=== PATIENT | female | born 1990 | race Caucasian/White ===

== ENCOUNTER 2019-09-23 21:37 | Emergency (ER) | payer BC ==
--- NOTE | 2019-09-23 21:48 | PDOC ---
Rapid Medical Evaluation Time Seen by Provider: 09/23/19 21:47 Medical Evaluation: 09/23/19 21:47 CC: heavy vaginal bleeding PE: blood soaked pants. electrolysis investigator deferred Orders: labs, urine Patient will proceed to ER for further evaluation. Discharge Disposition - Diagnosis Vaginal bleeding - Referrals - Patient Instructions - Post Discharge Activity
[2019-09-23 21:56] VITALS: BMI 24.4
--- NOTE | 2019-09-23 22:05 | PDOC ---
History of Present Illness - General Chief Complaint: Vaginal Bleeding Stated Complaint: MISCARRIGE Time Seen by Provider: 09/23/19 21:47 History Source: Patient Exam Limitations: No Limitations - History of Present Illness Initial Comments: 09/23/19 22:39 29yF previously healthy 11wk presenting w vaginal bleeding and suprapubic cramping. Started vaginal bleeding 2d ago, acutely worsening at 7pm today, passed tissue of conception. Took 3 motrin without relief. Was told 3wks ago by OBGYN (doesn't remember name) that no hr detected, likely will have miscarriage, prescribed cytotec but pt did not take d/t problems w pharmacy and travelling. Denies fever, chest pain, SOB, nausea/vomiting. 1st complicated w placenta previa, delivered at 36wks. Past History - Past Medical History Allergies/Adverse Reactions: Allergies Allergy/AdvReac Type Severity Reaction Status Date / Time No Known Allergies Allergy Verified 09/23/19 22:29 Home Medications: Ambulatory Orders NK [No Known Home Medication] 09/23/19 CVA: No COPD: No - Psycho Social/Smoking Cessation Hx Smoking History: Never smoked Have you smoked in the past 12 months: No Information on smoking cessation initiated: No Hx Alcohol Use: No Drug/Substance Use Hx: No Review of Systems - Review of Systems Constitutional: No: Chills, Fever HEENTM: No: Eye Pain, Nose Pain, Throat Pain, Mouth Pain Respiratory: No: Cough, Shortness of Breath Cardiac (ROS): No: Chest Pain, Palpitations, Syncope ABD/GI: No: Abdominal Distended, Constipated, Diarrhea, Nausea, Vomiting : No: Burning, Dysuria, Hematuria Musculoskeletal: No: Back Pain, Joint Pain Integumentary: No: Bruising, Flushing, Lesions Neurological: No: Headache, Numbness, Seizure, Tingling Psychiatric: No: Anxiety, Depression, Stressors Endocrine: No: Excessive Sweating, Flushing, Intolerance to Cold, Intolerance to Heat Hematologic/Lymphatic: Yes: Blood Clots. No: Anemia *Physical Exam - Vital Signs Last Vital Signs Temp Pulse Resp BP Pulse Ox 98.4 F 82 18 128/64 98 09/23/19 21:40 09/23/19 21:40 09/23/19 21:40 09/23/19 21:40 09/23/19 21:40 - Physical Exam General Appearance: Yes: Nourished, Appropriately Dressed, Mild Distress HEENT: positive: EOMI, ROBEROT, Normal Voice, Hearing Grossly Normal. negative: Scleral Icterus (R), Scleral Icterus (L), Nasal Congestion, Rhinorrhea Respiratory/Chest: positive: Lungs Clear, Normal Breath Sounds. negative: Chest Tender, Respiratory Distress, Crackles, Rales, Rhonchi, Stridor, Wheezing Cardiovascular: positive: Regular Rhythm, Regular Rate, S1, S2. negative: Edema , Murmur Female Pelvic Exam: positive: normal external exam, normal adnexa, normal size ovaries, vaginal bleeding (gross). negative: cervical os closed (open 4cm), CMT , discharge Gastrointestinal/Abdominal: positive: Normal Bowel Sounds, Tender (mild suprapubic), Flat, Soft. negative: Organomegaly Musculoskeletal: negative: CVA Tenderness (R), CVA Tenderness (L) Extremity: positive: Normal Capillary Refill Integumentary: positive: Normal Color Neurologic: positive: Fully Oriented, Alert, Normal Response, Responsive. negative: Sensory Deficit, Confused, Disoriented ED Treatment Course - LABORATORY CBC & Chemistry Diagram: 09/23/19 22:25 09/23/19 22:25 Medical Decision Making - Medical Decision Making 09/23/19 22:44 pelvic exam showed gross blood w clots, open cervical os 4cm, no cervical/ ovarian tenderness TVUS WBC 11, normal CMP, O+ B-HCG 4435 --- 29yF previously healthy 11wk presenting w vaginal bleeding and suprapubic cramping Likely inevitable (open os, bleeding, released tissue of conception) vs viable intrauterine vs ectopic. Hemodynamically stable, not anemic , HCG 4435. Given 1L NS, tylenol Consult Dr Kathleen MENDOZA after US read Anticipate DC w cytotec, f/u for HCG recheck in 2d Signed out to night team Discharge - Discharge Information Problems reviewed: Yes Clinical Impression/Diagnosis: Vaginal bleeding Condition: Stable - Follow up/Referral - Patient Discharge Instructions - Post Discharge Activity
[2019-09-23] MEDS ORDERED: SODIUM CHLORIDE 0.9% 1000 ML INFUS.BAG IV ONE (22:09)
[2019-09-23 22:39] LABS: BASO % 0.8 % (0-2.0); EOS % 1.4 % (0-4.5); HEMATOCRIT 32.6 % (32.4-45.2); HEMOGLOBIN 10.9 GM/dL (10.7-15.3); LYMPH % 21.5 % (8-40); MCH 26.6 pg (25.7-33.7); MCHC 33.4 g/dl (32.0-36.0); MEAN CELL VOLUME 79.7 fl (80-96); MEAN PLT VOLUME 8.8 fl (7.5-11.1); MONO % 5.1 % (3.8-10.2); NEUT % 71.2 % (42.8-82.8); PLATELET COUNT 223 K/MM3 (134-434); RBC 4.09 M/mm3 (3.60-5.2); RDW 14.9 % (11.6-15.6); WHITE BLOOD COUNT 11.3 K/mm3 (4.0-10.0)
[2019-09-23] MEDS ORDERED: ACETAMINOPHEN 1000 MG/100 ML VIAL (NON FORMULARY) IVPB ONE (22:39)
--- NOTE | 2019-09-23 22:48 | PDOC ---
Documentation entered by Minesh Bceker SCRIBE, acting as scribe for Jolie Zaman MD. Jolie Zaman MD: This documentation has been prepared by the Eugenio poole Nirvannie, SCRIBE, under my direction and personally reviewed by me in its entirety. I confirm that the documentation accurately reflects all work, treatment, procedures, and medical decision making performed by me. Attending Attestation - Resident Resident Name: Percy Anglin - ED Attending Attestation I have performed the following: I have examined & evaluated the patient, The case was reviewed & discussed with the resident, I agree w/resident's findings & plan, Exceptions are as noted - HPI HPI: 09/23/19 22:24 29 year old at 11 weeks female, with no significant past medical history, who presents to the emergency department with vaginal bleeding. As per patient, 3 weeks ago on ultrasound was found to have no heartbeat and was prescribed cytotec, however, she was unable to take the medication secondary to issues with traveling and insurance. started having spotting 2 days ago, bleeding became heavy today. was having severe abd cramping earlier, did pass bright red blood with tissue. no dizziness or lightheadedness. no mod factors. did have one other , complicated by placenta previa She denies recent fevers, chills, headache or dizziness. She denies recent nausea, vomit, diarrhea or constipation. She denies recent dysuria, frequency, urgency or hematuria. She denies recent chest pain or shortness of breath. Allergies: NKDA 09/23/19 22:39 09/23/19 22:41 - Physicial Exam PE: 09/23/19 22:41 awake alet lungs clear bilat heart rrr no mrg abd soft mild suprapubic ttp. no rebound no guarding. ext wwp no cva tenderness. vaginal exam with pooling bright red blood in vault. os open few mm, some clots. no adnexal tenderness. - Medical Decision Making 09/23/19 22:42 29 yo f with piror previa here with bleeding. told demise 3 weeks ago , did not use cytotec as prescribed. started bleeding 3 days ago, became heavy today. on exam vaginal vault wih pooling. no adnexal masses. cervix open. plan cbc cmp iv hydration tvus. bhcg. type and screen. pt states bleeding is slowing down. pending us results, will determine if d&C needed, or conservative management. 09/24/19 00:40 tvus with miscarriage in progress. small pole 5 wks in size much smaller thn expected consistent with demise noted several weeks earlier. will d/w ob/ trichologist for followup. pt is here visiting from [place]. 09/24/19 00:41
[2019-09-23 23:00] LABS: INR 1.07 (0.83-1.09); PROTHROMBIN TIME (PATIENT) 12.6 SEC (9.7-13.0)
[2019-09-23] MEDS ORDERED: ACETAMINOPHEN INJECTION 100 ML IVPB ONE (23:02)
[2019-09-23 23:24] LABS: BILIRUBIN,TOTAL 0.2 mg/dL (0.2-1); BLOOD UREA NITROGEN 13.1 mg/dL (7-18); CALCIUM 8.9 mg/dL (8.5-10.1); CREATININE 0.7 mg/dL (0.55-1.3); POTASSIUM 3.7 mmol/L (3.5-5.1); TOT PROT 7.2 g/dl (6.4-8.2)
--- NOTE | 2019-09-24 01:25 | PDOC ---
*Physical Exam - Vital Signs Last Vital Signs Temp Pulse Resp BP Pulse Ox 98.4 F 82 18 128/64 98 09/23/19 21:40 09/23/19 21:40 09/23/19 21:40 09/23/19 21:40 09/23/19 21:40 - Physical Exam General Appearance: Yes: Nourished, Appropriately Dressed HEENT: positive: EOMI, ROBERTO, Normal ENT Inspection, Pharynx Normal Neck: positive: Trachea midline, Normal Thyroid, Supple Respiratory/Chest: positive: Lungs Clear, Normal Breath Sounds. negative: Crackles, Wheezing Cardiovascular: positive: Regular Rhythm, Regular Rate, S1, S2. negative: Murmur, Gallop/S3, Gallop/S4 Vascular Pulses: Dorsalis-Pedis (R): 2+, Doralis-Pedis (L): 2+ Female Pelvic Exam: positive: vaginal bleeding. negative: cervical os closed Gastrointestinal/Abdominal: positive: Normal Bowel Sounds, Soft. negative: Guarding, Rebound Neurologic: positive: Fully Oriented, Alert, Normal Mood/Affect ED Treatment Course - LABORATORY CBC & Chemistry Diagram: 09/23/19 22:25 09/23/19 22:25 - ADDITIONAL ORDERS Additional order review: Laboratory Results 09/23/19 09/23/19 09/23/19 22:25 22:25 22:25 PT with INR 12.60 INR 1.07 Sodium 139 Potassium 3.7 Chloride 105 Carbon Dioxide 27 Anion Gap 7 L BUN 13.1 Creatinine 0.7 Est GFR (CKD-EPI)AfAm 133.81 Est GFR (CKD-EPI)NonAf 115.45 Random Glucose 103 Calcium 8.9 Total Bilirubin 0.2 AST 9 L ALT 18 Alkaline Phosphatase 66 Total Protein 7.2 Albumin 4.0 Beta HCG, Quant 4435.3 Blood Type O POSITIVE Antibody Screen Negative 09/23/19 22:25 RBC 4.09 MCV 79.7 L MCHC 33.4 RDW 14.9 MPV 8.8 Neutrophils % 71.2 Lymphocytes % 21.5 Monocytes % 5.1 Eosinophils % 1.4 Basophils % 0.8 - Medications Given in the ED: ED Medications Discontinued Medications Generic Name Dose Route Start Last Admin Trade Name Freq PRN Reason Stop Dose Admin Acetaminophen 1,000 mg 09/23/19 22:39 09/23/19 23:03 Ofirmev Injection - IVPB 09/23/19 22:40 1,000 mg ONCE ONE Administration Sodium Chloride 1,000 ml 09/23/19 22:09 09/23/19 22:30 Normal Saline - IV 09/23/19 22:10 1,000 ml ONCE ONE Administration Medical Decision Making - Medical Decision Making 29y/o F previously healthy 5 wks 6 days by crown-rump on US presented w/ vaginal bleeding and suprapubic cramping Consulted Dr Kathleen MENDOZA after US read US Dr. Wang agreed to sent pt home and allow natural to take place no need for cytotec or pitocin at this moment Encouraged pt to follow up with her PRODUCT DISTRIBUTION SPECIALIST as she is going back to her home town in [place] Referred pt to Dr. Mcmillan if she needs to come in earlier 09/24/19 01:29 Discharge - Discharge Information Problems reviewed: Yes Clinical Impression/Diagnosis: Vaginal bleeding, Miscarriage Condition: Improved Disposition: HOME - Admission No - Follow up/Referral Referrals: Delfino Mcmillan MD [Staff Physician] - Lala Barrera MD [Staff Physician] - - Patient Discharge Instructions Patient Printed Discharge Instructions: DI for Miscarriage, DI for Vaginal Bleeding During Additional Instructions: You were seen in the emergency room for vaginal bleeding While in the emergency room, we evaluated you with lab work, blood work, and imaging including an Ultrasound. We found that your symptoms were caused by a miscarriage. This miscarriage caused you to bleed because the body is naturally passing the fetus out of you. You will experience some bleeding over the next few days as the body undergoes this miscarriage. It is extremely important that you follow up with your PRODUCT DISTRIBUTION SPECIALIST physician n the next few days, as soon as possible. We will provide you with our PRODUCT DISTRIBUTION SPECIALIST information as well, if you choose to follow up with us. Please also follow up with your primary care physician within 1 week Return to the emergency room if you experience worsening of your symptoms, dizziness, fevers, chills, nausea, vomiting, abdominal pain or worsening vaginal bleed. - Post Discharge Activity
[2019-09-24 01:38] VITALS: BP 97/63; PULSE 75; TEMP 98.3
== END 2019-09-24 01:38 | disposition home or self-care (01) ==
LOC: JER 21:37
DX: O26.891 Other specified pregnancy related conditions, first trimester (principal); O03.4 Incomplete spontaneous abortion without complication; Z3A.01 Less than 8 weeks gestation of pregnancy
CPT/HCPCS: 36415; 76801-TC; 80053; 84702; 85025; 85610; 86850; 86900; 86901; 99282-25; J0131; J7030

== ENCOUNTER 2019-09-24 12:56 | Emergency (ER) | payer BC ==
[2019-09-24 13:17] VITALS: BMI 26.2
[2019-09-24] MEDS ORDERED: ACETAMINOPHEN 1000 MG/100 ML VIAL (NON FORMULARY) IVPB ONE (13:37)
[2019-09-24] MEDS ORDERED: ONDANSETRON 4 MG/2 ML VIAL IVPUSH ONE (13:37)
[2019-09-24] MEDS ORDERED: SODIUM CHLORIDE 1,000 ML IV STA ×2 (13:37→15:54)
[2019-09-24] MEDS ORDERED: ONDANSETRON 4 MG/2 ML VIAL ONE ×2 (14:20→14:24)
[2019-09-24] MEDS ORDERED: ACETAMINOPHEN INJECTION 100 ML IVPB ONE (14:21)
[2019-09-24 14:34] LABS: BASO % 0.4 % (0-2.0); EOS % 0.5 % (0-4.5); HEMATOCRIT 30.1 % (32.4-45.2); HEMOGLOBIN 9.9 GM/dL (10.7-15.3); LYMPH % 7.9 % (8-40); MCH 26.4 pg (25.7-33.7); MCHC 33.1 g/dl (32.0-36.0); MEAN CELL VOLUME 79.9 fl (80-96); MEAN PLT VOLUME 9.4 fl (7.5-11.1); MONO % 3.7 % (3.8-10.2); NEUT % 87.5 % (42.8-82.8); PLATELET COUNT 225 K/MM3 (134-434); RBC 3.77 M/mm3 (3.60-5.2); RDW 15.3 % (11.6-15.6); WHITE BLOOD COUNT 13.3 K/mm3 (4.0-10.0)
[2019-09-24 15:13] LABS: EPI CELLS 5.5 /HPF (0-5/HPF); HYALINE CASTS 19 /lpf (0-8); URINE APPEARANCE CLEAR; URINE BACTERIA 1.5 /hpf (NEGATIVE); URINE BILIRUBIN NEGATIVE (NEGATIVE); URINE COLOR YELLOW; URINE GLUCOSE (UA) TRACE (NEGATIVE); URINE KETONE TRACE (NEGATIVE); URINE LEUK ESTERASE NEGATIVE (NEGATIVE); URINE NITRITE NEGATIVE (NEGATIVE); URINE PROTEIN 2+ (NEGATIVE); URINE RBC 16 /hpf (0-4); URINE UROBILINOGEN 0.2 mg/dL (0.2-1.0)
--- NOTE | 2019-09-24 15:55 | PDOC ---
History of Present Illness - General Chief Complaint: Pain Stated Complaint: F/U s/p miscarriage. worsening abd pain Time Seen by Provider: 09/24/19 13:27 History Source: Patient Exam Limitations: No Limitations - History of Present Illness Travel History: No Initial Comments: 09/24/19 14:55 29-year-old female presents to ED with lower abdominal cramping nausea, and vaginal bleeding. Patient states was here yesterday had an ultrasound which showed incomplete . Patient states did not take anything for pain but decided come to the ER due to discomfort. Patient denies fever, chills, dizziness increased vaginal bleeding, or difficulty breathing Timing/Duration: reports: constant Quality: reports: mild, cramping Abdominal Pain Onset Location: reports: suprapubic Pain Radiation: reports: no radiation Activities at Onset: reports: none Aggravating Factors: improves with: None Alleviating Factors: improves with: None Past History - Travel Traveled outside of the country in the last 30 days: No Close contact w/someone who was outside of country & ill: No - Past Medical History Allergies/Adverse Reactions: Allergies Allergy/AdvReac Type Severity Reaction Status Date / Time No Known Allergies Allergy Verified 09/24/19 13:17 Home Medications: Ambulatory Orders NK [No Known Home Medication] 09/23/19 CVA: No COPD: No - Reproductive History (#): 2 Para: 1 Cervical CA: No Dysfunctional Uterine Bleeding: No Ectopic : No Endometrial CA: No Polycystic Ovaries: No Tubal Ligation: No - Psycho Social/Smoking Cessation Hx Smoking History: Never smoked Have you smoked in the past 12 months: No Information on smoking cessation initiated: No Hx Alcohol Use: No Drug/Substance Use Hx: No Patient Lives Alone: No Lives with/in: spouse/SO Review of Systems - Review of Systems Able to Perform ROS?: No Is the patient limited Yi proficient: No Constitutional: No: Symptoms Reported HEENTM: No: Symptoms Reported Respiratory: No: Symptoms reported Cardiac (ROS): No: Symptoms Reported ABD/GI: Yes: Nausea, Abdominal cramping : Yes: Discharge (vag bleeding) Musculoskeletal: No: Symptoms Reported Integumentary: No: Symptoms Reported Neurological: Yes: Weakness (mild generalized) *Physical Exam - Vital Signs Last Vital Signs Temp Pulse Resp BP Pulse Ox 97.9 F 67 18 92/51 L 100 09/24/19 13:00 09/24/19 13:50 09/24/19 13:50 09/24/19 13:50 09/24/19 13:50 - Physical Exam General Appearance: Yes: Nourished, Appropriately Dressed. No: Apparent Distress HEENT: negative: Pale Conjunctivae Neck: positive: Supple Respiratory/Chest: positive: Lungs Clear, Normal Breath Sounds. negative: Respiratory Distress, Accessory Muscle Use Cardiovascular: positive: Regular Rhythm, Regular Rate. negative: Murmur Female Pelvic Exam: positive: vaginal bleeding (Moderate amount of bright red blood on sanitary napkin. No clots) Gastrointestinal/Abdominal: positive: Soft, Tenderness (suprapubic tenderness) Integumentary: positive: Normal Color, Warm, Moist Neurologic: positive: Motor Strength 5/5 (ambulatory) ED Treatment Course - LABORATORY CBC & Chemistry Diagram: 09/24/19 14:15 - ADDITIONAL ORDERS Additional order review: Laboratory Results 09/24/19 14:20 Urine Color Yellow Urine Appearance Clear Urine pH 5.0 Ur Specific [place] 1.015 Urine Protein 2+ H Urine Glucose (UA) Trace Urine Ketones Trace H Urine Blood 2+ H Urine Nitrite Negative Urine Bilirubin Negative Urine Urobilinogen 0.2 Ur Leukocyte Esterase Negative Urine RBC (Auto) 16 Urine Casts (Auto) 19 U Epithel Cells (Auto) 5.5 Urine Bacteria (Auto) 1.5 09/24/19 14:15 RBC 3.77 MCV 79.9 L MCHC 33.1 RDW 15.3 MPV 9.4 Neutrophils % 87.5 H D Lymphocytes % 7.9 L D Monocytes % 3.7 L Eosinophils % 0.5 Basophils % 0.4 - RADIOLOGY Radiology Studies Ordered: Category Date Time Status <14WKS US [US] Stat Ultrasound 09/24/19 13:38 Taken - Medications Given in the ED: ED Medications Discontinued Medications Generic Name Dose Route Start Last Admin Trade Name Freq PRN Reason Stop Dose Admin Acetaminophen 1,000 mg 09/24/19 13:37 09/24/19 14:36 Ofirmev Injection - IVPB 09/24/19 13:38 1,000 mg ONCE ONE Administration Sodium Chloride 1,000 mls @ 1,000 mls/hr 09/24/19 13:37 09/24/19 14:36 Normal Saline - IV 09/24/19 14:36 1,000 mls/hr ASDIR STA Administration Ondansetron HCl 4 mg 09/24/19 13:37 09/24/19 14:36 Zofran Injection IVPUSH 09/24/19 13:38 4 mg ONCE ONE Administration Medical Decision Making - Medical Decision Making 09/24/19 15:03 Chief complaint: Patient here with nausea and vomiting x1 since yesterday. Patient states was told she was miscarrying and to follow-up with her CASTING INSPECTOR. Patient states now with worsening abdominal cramping without worsening vaginal bleeding exam: Blood pressure 91/54 heart rate 67 mid suprapubic tenderness on exam with moderate amount of bright red blood on sanitary napkin Plan: Labs, IV fluids, IV Tylenol repeat ultrasound. 09/24/19 16:06 Laboratory Tests 09/23/19 09/24/19 09/24/19 22:25 14:15 14:20 WBC 13.3 H Hgb 10.9 9.9 L Hct 30.1 L MCV 79.9 L Absolute Neuts (auto) 11.6 H Neutrophils % 87.5 H D Lymphocytes % 7.9 L D Monocytes % 3.7 L Urine Protein 2+ H Urine Glucose (UA) Trace Urine Ketones Trace H Urine Blood 2+ H Urine Nitrite Negative Urine Bilirubin Negative Urine Urobilinogen 0.2 Ur Leukocyte Esterase Negative Urine RBC (Auto) 16 Urine Casts (Auto) 19 U Epithel Cells (Auto) 5.5 Urine Bacteria (Auto) 1.5 Will repeat vitals currently at ultrasound 09/24/19 17:02 Beta-hCG added.Patient states feeling much better and requesting to eat. 09/24/19 17:21 In comparison to previous ultrasound exam 09/06/2019 There is no longer visualization of intrauterine gestational sac consistent with interval miscarriage. There was also nonviable embryonic pole within the gestational sac which was noted which is not visualized on current exam. On the current exam a 2 x 1.7 heterogeneous focus is seen within the endometrial canal at the level of the fundus probably representing small amount of clotted blood and less likely retained products of conception. This focus was not seen at the present time of the previous exam. Correlation with close follow-up sonographic is suggested to document resolution. Patient is here from [place] and is returning on Monday and states she can follow-up with her PATIENT ATTENDANT there on Monday. 09/24/19 18:25 Laboratory Tests 09/23/19 09/24/19 22:25 14:15 WBC 13.3 H Hgb 9.9 L Hct 30.1 L Beta HCG, Quant 4435.3 Laboratory Tests 09/24/19 17:10 Beta HCG, Quant 2084.6 09/24/19 18:28 Discharge - Discharge Information Problems reviewed: Yes Clinical Impression/Diagnosis: Miscarriage Condition: Improved Disposition: HOME - Follow up/Referral - Patient Discharge Instructions Patient Printed Discharge Instructions: DI for Miscarriage Additional Instructions: Since you are returning to [place] I recommend follow-up with your CASTING INSPECTOR on Monday for repeat beta-hCG and ultrasound. Please return to the ED immediately while here in [place] if you develop increasing weakness severe abdominal cramping or heavy vaginal bleeding - Post Discharge Activity
[2019-09-24 16:34] LABS: URINE WBC 10.4 /hpf (0-5)
[2019-09-24 17:50] VITALS: BP 95/5; PULSE 71; TEMP 97.1
== END 2019-09-24 18:35 | disposition home or self-care (01) ==
LOC: JER 12:56
PROC: 3E033NZ Introduction of Analgesics, Hypnotics, Sedatives into Peripheral Vein, Percutaneous Approach (ICD-10-PCS; principal; 2019-09-24)
PROC: 3E033GC Introduction of Other Therapeutic Substance into Peripheral Vein, Percutaneous Approach (ICD-10-PCS; 2019-09-24)
PROC: 3E0337Z Introduction of Electrolytic and Water Balance Substance into Peripheral Vein, Percutaneous Approach (ICD-10-PCS; 2019-09-24)
DX: O03.9 Complete or unspecified spontaneous abortion without complication (principal)
CPT/HCPCS: 36415; 76801-TC; 81003; 84702; 85025; 87086; 99283-25; J0131; J7030